=== PATIENT | female | born 1990 | race Caucasian/White ===

== ENCOUNTER 2019-12-03 09:29 | Inpatient (IN) | payer OTHER, MEDICAID ==
[~2019-12-03] VITALS: Ht 170.2 cm; Wt 55.3 kg
--- NOTE | 2019-12-03 09:34 | NUR ---
BIBRA 76, WOKE UP W/ NAUSEA AND VOMITING SINCE 4AM. 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 TO ER BED 1, HOOKED TO MONITOR, CHANGED TO HOSP GOWN, WARM BLANKET PROVIDED, PATIENT AAO x 4, BREATHING EVEN AND UNLABORED. DR VILLAGOMEZ AT BEDSIDE
[2019-12-03] MEDS ORDERED: ONDANSETRON HCL/PF 4 MG/2 ML VIAL IVP ONE (10:00)
[2019-12-03] MEDS ORDERED: IV NS 0.9% 1,000 ML BAG IV ONE ×2 (10:00→11:30)
[2019-12-03] MEDS ORDERED: ONDANSETRON HCL/PF 4 MG/2 ML VIAL ONE (10:01)
--- NOTE | 2019-12-03 10:12 | NUR ---
CALLED POISON CONTROL [phone] VILLAGOMEZ SPEAK WITH EDUARDA.
[2019-12-03 10:22] LABS: BASOPHILS % (AUTO) 0.3 % (0.0-2.0); EOSINOPHILS % (AUTO) 0.5 % (0.0-6.0); HEMATOCRIT 46 % (33-45); HEMOGLOBIN 15.2 g/dL (11.5-14.8); LYMPHOCYTES % (AUTO) 5.9 % (20.0-44.0); MEAN CORPUSCULAR HGB CONC 33 g/dl (31.0-36.0); MEAN CORPUSCULAR VOLUME 97 fL (82-100); MONOCYTES # (AUTO) 0.3 /CMM (0.1-1.30); MONOCYTES % (AUTO) 1.9 % (2.0-12.0); NEUTROPHILS # (AUTO) 15.8 /CMM (1.8-8.9); NEUTROPHILS % (AUTO) 91.4 % (43.0-81.0); RED BLOOD CELL COUNT(AUTO) 4.73 MIL/uL (4.0-5.2); WHITE BLOOD COUNT (AUTO) 17.3 K/uL (4.3-11.0)
[2019-12-03 10:26] LABS: APPEARANCE,URINE CLEAR (CLEAR); BILIRUBIN,URINE NEGATIVE (NEGATIVE); BLOOD, URINE MODERATE Ery/uL (NEGATIVE); COLOR,URINE YELLOW (YELLOW); KETONES,URINE >=80 (NEGATIVE); LEUKOCYTE ESTERASE ,URINE NEGATIVE (NEGATIVE); NITRITE, URINE NEGATIVE (NEGATIVE); PH,URINE 5.5 (5.0-8.0); PROTEIN,URINE NEGATIVE (NEGATIVE); UGLUCOSE NEGATIVE (NEGATIVE); UROBILINOGEN,URINE 0.2 EU/dL (0.2)
[2019-12-03 10:37] LABS: BACTERIA,URINE Rare /HPF (None Seen); SQUAMOUS EPITHELIAL CELL,UR Few /HPF (None Seen); WBC,URINE 0-2 /HPF (0-3)
[2019-12-03 10:39] LABS: CALCIUM, SERUM 9.6 mg/dL (8.5-10.1); CREATININE 0.7 mg/dL (0.6-1.3); POTASSIUM 3.7 mmol/L (3.5-5.1)
[2019-12-03 10:45] LABS: ALBUMIN 4.7 g/dL (3.4-5.0); BILIRUBIN,DIRECT 0.1 mg/dL (0.0-0.2); BILIRUBIN,TOTAL 0.3 mg/dL (0.2-1.0); TOTAL PROTEIN, SERUM 8.4 g/dL (6.4-8.2)
[2019-12-03 10:54] LABS: ALCOHOL, BLOOD 27 mg/dL (0-0); SALICYLATE 4.4 mg/dL (2.8-20.0)
[2019-12-03 10:57] LABS: ACETAMINOPHEN < 10 ug/ml (10-30)
--- NOTE | 2019-12-03 11:02 | NUR ---
RT AT BEDSIDE FOR ABG
[2019-12-03 11:08] LABS: ABG BASE EXCESS -12.7 mmol/L; ABG PCO2 22.2 mmHg (35.0-45.0); ABG PH 7.322 (7.350-7.450); ABG PO2 136.6 mmHg (75.0-100.0); COHb 0.1 % (0.5-1.5); MetHb 0.3 % (0.0-1.5); O2Hb 97.6 % (94.0-97.0); SITE, ABG Right Radial; VENT MODE, BG RA
[2019-12-03] MEDS ORDERED: PIPERACILLIN /TAZOBACTAM 3.375 G in IV D5W 50 ML IV ONE (11:30)
[2019-12-03] MEDS ORDERED: PIPERACILLIN /TAZOBACTAM 3.375 G VIAL IV ONE (11:32)
[2019-12-03 11:43] LABS: PLATELET COUNT (AUTO) 324 /CMM (150-450)
[2019-12-03] MEDS ORDERED: MARLISSA PO (11:43)
[2019-12-03] MEDS ORDERED: ALPR0.5T8 PO (11:43)
[2019-12-03] MEDS ORDERED: ESCI20TA PO (11:43)
[2019-12-03] MEDS ORDERED: IOHEXOL-300 100 ML VIAL IV ONE (11:49)
[2019-12-03] MEDS ORDERED: IV NS 0.9% 250 ML IV ONE (11:50)
--- NOTE | 2019-12-03 12:01 | NUR ---
patient in bed asleep, aesily arousable by voice. hooked to monitor, VSS. will continue to monitor accordingly.
[2019-12-03] MEDS ORDERED: Z GUARD REMEDY 2 OZ OINT TP PRN (12:30)
[2019-12-03] MEDS ORDERED: ONDANSETRON HCL/PF 4 MG/2 ML VIAL IVP PRN (12:30)
[2019-12-03] MEDS ORDERED: ACETAMINOPHEN 325 MG TABLET PO PRN (12:30)
--- NOTE | 2019-12-03 13:12 | NUR ---
patient in bed asleep, easily arousable by voice. hooked to monitor. VSS. will continue to monitor accordingly
--- NOTE | 2019-12-03 14:59 | NUR ---
AMBULATED TO THE RESTROOM WITH STEADY GAIT
--- NOTE | 2019-12-03 17:01 | NUR ---
TELE 314-2
--- NOTE | 2019-12-03 17:03 | NUR ---
REPORT GIVEN TO ANTHONY JAVIER FOR AKILAH. AWAITING TRANSFER.
[2019-12-03 18:00] VITALS: BP 113/58
[2019-12-03] MEDS: IV NS 0.9% 1,000 ML IV PRN (18:02)
--- NOTE | 2019-12-03 18:04 | NUR ---
RN ADMITTING NOTE Patient arrived at 1745 A/O x4, showing no signs of acute distress or SOB, stable on RA. Skin assessed and skin is intact. Patient has no c/o n/v at this time. Patient has no complaints of pain at this time. Patient stated her last episode of vomiting was in the ambulance on the way to the ER. IV line in the LFA #20g is clean and intact running NS @ 75mls/hour. Bed is in lowest position, side rails x3 in upright position, call light is within reach, fall safety seizure and aspiration precautions enforced. Will continue with admission process.
--- NOTE | 2019-12-03 19:22 | NUR ---
RN NOTE ENDORSED TO PM RN FOR AKILAH.
--- NOTE | 2019-12-03 19:31 | NUR ---
MS RN OPENING NOTES PATIENT SLEEPING IN BED, EASY TO AWAKEN. A/OX4. ON RA; NO S/S OF ACUTE RESPIRATORY DISTRESS; BREATHING IS EVEN AND UNLABORED. NO S/S OF PAIN NOTED. IV PRESENT ON LEFT FA, SIZE 20, INTACT & PATENT, NS RUNNING AT 75 ML/HR. SAFETY MEASURES IN PLACE AND PATIENT'S NEEDS MET. BED LOCKED, SIDE RAILS X2, CALL LIGHT WITHIN REACH. WILL CONTINUE TO MONITOR.
[2019-12-03 20:00] VITALS: BP 111/58
--- NOTE | 2019-12-03 23:19 | NUR ---
MS RN NOTES PATIENT C/O EXTREME ANXIETY/AGITATION. CURRENT HOME MEDICATIONS (ALPRAZOLAM 0.5MG AND LEXAPRO 20MG) HELD BY DR. ROMERO. OPERATIONS STAFF SPECIALIST SECURITY ALEXUS ESTEVES, MADE AWARE. RECEIVED ONE TIME ORDER OF ATIVAN 0.5 MG PO. WILL CARRYOUT ORDERS.
[2019-12-03] MEDS ORDERED: LORAZEPAM 0.5 MG TABLET PO ONE (23:30)
[2019-12-04] MEDS: IV NS 0.9% 1,000 ML IV PRN (06:20)
--- NOTE | 2019-12-04 06:37 | NUR ---
MS RN CLOSING NOTES PATIENT SLEEPING. NO ADVERSE EVENTS DURING SHIFT. A/OX4. ON RA; NO S/S OF ACUTE RESPIRATORY DISTRESS; BREATHING IS EVEN AND UNLABORED. NO S/S OF PAIN NOTED. IV PRESENT ON LEFT FA, SIZE 20, INTACT & PATENT, NS RUNNING AT 75 ML/HR. SAFETY MEASURES IN PLACE AND PATIENT'S NEEDS MET. BED LOCKED, SIDE RAILS X2, CALL LIGHT WITHIN REACH. WILL ENDORSE TO DAY SHIFT RN FOR PLAN OF CARE.
[2019-12-04 07:24] LABS: BASOPHILS % (AUTO) 0.4 % (0.0-2.0); EOSINOPHILS % (AUTO) 0.7 % (0.0-6.0); HEMATOCRIT 36 % (33-45); HEMOGLOBIN 12.3 g/dL (11.5-14.8); LYMPHOCYTES # (AUTO) 2.2 /CMM (0.8-4.8); LYMPHOCYTES % (AUTO) 37.1 % (20.0-44.0); MEAN CORPUSCULAR HGB CONC 34 g/dl (31.0-36.0); MEAN CORPUSCULAR VOLUME 96 fL (82-100); MONOCYTES # (AUTO) 0.5 /CMM (0.1-1.30); MONOCYTES % (AUTO) 7.9 % (2.0-12.0); NEUTROPHILS # (AUTO) 3.2 /CMM (1.8-8.9); NEUTROPHILS % (AUTO) 53.9 % (43.0-81.0); PLATELET COUNT (AUTO) 302 /CMM (150-450); RED BLOOD CELL COUNT(AUTO) 3.78 MIL/uL (4.0-5.2); WHITE BLOOD COUNT (AUTO) 5.9 K/uL (4.3-11.0)
--- NOTE | 2019-12-04 07:41 | NUR ---
MS RN OPENING NOTE PATIENT IN BED RESTING COMFORTABLY. PATIENT IN NO ACUTE DISTRESS. NO SOB NOTED. PATIENT BREATHING IS EVEN AND UNLABORED. PATIENT STATES NO PAIN AT THIS TIME. PATIENT SAFETY PRECAUTIONS IN PLACE. PATIENT BED IS LOCKED AND IN LOWEST POSITION. CALL LIGHT WITHIN REACH. WILL CONTINUE TO MONITOR.
[2019-12-04 07:46] LABS: CALCIUM, SERUM 8.2 mg/dL (8.5-10.1); CREATININE 0.6 mg/dL (0.6-1.3); POTASSIUM 3.6 mmol/L (3.5-5.1)
[2019-12-04 08:00] VITALS: BP 106/66
[2019-12-04 08:01] LABS: THYROID STIMULATING HORMONE 1.52 uIU/mL (0.358-3.74)
--- NOTE | 2019-12-04 11:40 | NUR ---
MS RN NOTE DR. JUÁREZ SEEN AND EVALUATED PATIENT. PER MD ORDER FOR UPGRADE DIET TO SOFT DIET.
--- NOTE | 2019-12-04 12:45 | NUR ---
MS RN NOTE PATIENT TOLERATED SOFT DIET WELL. PATIENT STATES NO PAIN AT THIS TIME.
--- NOTE | 2019-12-04 14:00 | NUR ---
MS RN NOTE PATIENT REFUSED SKIN ASSESSMENT. EDUCATED RISKS VS BENEFITS. PATIENT CONTINUED TO REFUSE SKIN ASSESSMENT.
--- NOTE | 2019-12-04 14:22 | NUR ---
MS ELECTRICAL SOLDERER NOTE PATIENT MEDICALLY STABLE FOR DISCHARGE. PATIENT IN NO ACUTE DISTRESS. NO SOB NOTED. PATIENT BREATHING IS EVEN AND UNLABORED. DC INSTRUCTIONS PROVIDED. PATIENT VERBALIZED UNDERSTANDING. ID BAND REMOVED. PATIENT IV REMOVED. PATIENT REFUSED SKIN ASSESSMENT. EDUCATED RISKS VS BENEFITS. PATIENT CONTINUED TO REFUSE SKIN ASSESSMENT. PATIENT SIGNED BELONGINGS LIST AND HAS BELONGINGS WITH HER. PATIENT KEPT CLEAN, DRY, AND COMFORTABLE THROUGHOUT SHIFT. PATIENT NEEDS AND CONCERNS ADDRESSED. PATIENT AMBULATORY WITH STEADY GAIT GOING BACK HOME WITH MOM. MOM DRIVING PATIENT HOME. PATIENT CURRENT HOME CLOTHES WERE WET. OFFERED CLOTHES TO PATIENT, PATIENT REFUSED TO HAVE CLOTHES FROM THE HOSPITAL. PATIENT LEAVING WITH WEARING HOSPITAL GOWN AND JACKET, CHARGE NURSE HARDEEP MADE AWARE. MD AWARE OF DISCHARGE.
== END 2019-12-04 14:29 | disposition home or self-care (01) | DRG 918 ==
LOC: ER 09:32 → MED 17:11
DX: T43.641A Poisoning by ecstasy, accidental (unintentional), initial encounter (principal); E87.2 Acidosis; F32.9 Major depressive disorder, single episode, unspecified; F41.9 Anxiety disorder, unspecified; Z88.1 Allergy status to other antibiotic agents; Z79.899 Other long term (current) drug therapy; R11.2 Nausea with vomiting, unspecified; Y92.9 Unspecified place or not applicable; K57.30 Diverticulosis of large intestine without perforation or abscess without bleeding; K42.9 Umbilical hernia without obstruction or gangrene; F19.10 Other psychoactive substance abuse, uncomplicated; D72.829 Elevated white blood cell count, unspecified; Y90.1 Blood alcohol level of 20-39 mg/100 ml
CPT/HCPCS: 36415; 36600; 71045-TC; 80048-TC; 80061-TC; 80076-TC; 80305; 81000-TC; 82803-TC; 83605-TC; 83690-TC; 83735-TC; 84100-TC; 84443-TC; 84484-TC; 84702-TC; 85025-TC; 87040-TC; 87081-TC; C9803-CS; G0378; G0480; J2405; J2543; J7030; J7050; J7060; Q9967